=== PATIENT | female | born 1970 | race Caucasian/White ===

== ENCOUNTER 2018-10-25 13:26 | Emergency (ER) | payer BC ==
[2018-10-25 13:44] VITALS: BP 128/88; O2SAT 100
[2018-10-25] MEDS ORDERED: XYLOCAINE 2%/Epi 1:200000 20ML VIAL MPF SUBDERMAL STA (14:08)
[2018-10-25] MEDS ORDERED: Xylocaine 2%-Epi 1:100,000 MDV IJ ONE ×2 (14:16→14:32)
[2018-10-25] MEDS ORDERED: Adacel Vial IM ONE ×2 (14:32→14:36)
--- NOTE | 2018-10-25 14:38 | ERPHSYRPT ---
- History of Present Illness Source: patient, family Exam Limitations: no limitations Patient Subjective Stated Complaint: cut on the tiop of her head by a chainsaw. did not see her and skimmed the top of her head. lac x 2 Triage Nursing Assessment: alert and oriented in no distress. noted 2 small lac to the top of her head. bleeding controlled. denies any other injuries,. Physician History: Pt is a pleasant 48y/o that was working with her in the yard, and he was cutting branches with a chain saw. The pt tried to pick some branches off the ground, and the huisband did not see her, and skimmed the top of her head with the saw. There are two lacerations present on top part of her head. Pt denies N/V. No dizziness or syncope. No SOB or cough. She has tenderness around the lacerations. Timing/Duration: today Quality: painful Severity: moderate Location: scalp Possible Causes: other (chain saw lacerations) Associated Symptoms: headache Allergies/Adverse Reactions: No Known Drug Allergies Allergy (Unverified 10/25/18 14:12) Hx Tetanus, Diphtheria Vaccination/Date Given: No Hx Influenza Vaccination/Date Given: No Hx Pneumococcal Vaccination/Date Given: No Immunizations Up to Date: (unknown) - Review of Systems Constitutional: No Fever, No Chills Eyes: No Symptoms Ears, Nose, & Throat: No Symptoms Respiratory: No Cough, No Dyspnea Cardiac: No Chest Pain, No Edema, No Syncope Abdominal/Gastrointestinal: No Abdominal Pain, No Nausea, No Vomiting, No Diarrhea Musculoskeletal: No Back Pain, No Neck Pain Skin: Other (two lacerations on top of pt's head.) Neurological: No Dizziness, No Focal Weakness, No Sensory Changes Psychological: No Symptoms - Past Medical History Pertinent Past Medical History: Yes Respiratory History: Asthma - Past Surgical History Past Surgical History: Yes Female Surgical History: Section, Tubal Ligation - Social History Smoking Status: Never smoker Exposure to second hand smoke: No Drug Use: none Patient Lives Alone: No - Female History Hx Now: No - Nursing Vital Signs Nursing Vital Signs: Initial Vital Signs Temperature 98.3 F 10/25/18 13:38 Pulse Rate 75 10/25/18 13:38 Respiratory Rate 16 10/25/18 13:38 Blood Pressure 128/88 10/25/18 13:38 O2 Sat by Pulse Oximetry 100 01/01/19 13:38 Pain Scale Pain Intensity 4 - Physical Exam General Appearance: no apparent distress, alert Eye Exam: PERRL/EOMI, eyes nml inspection Ears, Nose, Throat Exam: normal ENT inspection, pharynx normal, moist mucous membranes Neck Exam: normal inspection, non-tender, supple, full range of motion Respiratory Exam: normal breath sounds, lungs clear, No respiratory distress Cardiovascular Exam: regular rate/rhythm, normal heart sounds Back Exam: normal inspection, normal range of motion, No CVA tenderness, No vertebral tenderness Extremity Exam: normal inspection, normal range of motion Neurologic Exam: alert, oriented x 3, cooperative, normal mood/affect, sensation nml, No motor deficits Skin Exam: laceration (x2, on top of pt's head, 4cm and 3 cm.) SpO2: 100 Oxygen Delivery: Room Air Procedures - Laceration/Wound Repair Head Wound Location: head Wound Length (cm): 4 (4cm and 3 cm) Wound's Depth, Shape: superficial Wound Explored: contaminated Irrigated: Yes Hibiclens Prep: Yes Anesthesia: local, 1% lidocaine w/ Epi Volume Anesthetic (ccs): 5 Wound Debrided: minimal Wound Repaired With: [place] (8 anurag. $ in each laceration) Layer Closure?: Yes Ordered Tests: Medication Summary Discontinued Medications Generic Name Dose Route Start Last Admin Trade Name Amla PRN Reason Stop Dose Admin Diphtheria/Tetanus/Acell Pertussis 0.5 ml 10/25/18 14:32 Adacel Vial IM 10/25/18 14:33 .ONCE ONE Lidocaine/Epinephrine 10 ml 10/25/18 14:08 10/25/18 14:31 Xylocaine 2%/Epi [id number] 20ml Vial Mpf SUBDERMAL 10/25/18 14:09 Not Given ONCE STA Lidocaine/Epinephrine Confirm 10/25/18 14:16 Xylocaine 2%-Epi 1:100,000 Mdv Administered 10/25/18 14:17 Dose 1 ml IJ .STK-MED ONE - Progress Progress: improved Will see patient in: office Counseled pt/family regarding: need for follow-up (Pt should f/u with PCP in 10 days for removal of anurag. Keep area clean and dry for 48-72 hrs) - Departure Time of Disposition: 14:40 Departure Disposition: Home Clinical Impression: Laceration Condition: Stable Critical Care Time: No Referrals: MOHSEN GONSALVES [Primary Care Provider] - Instructions: Laceration Repair With [place] (DC) Additional Instructions: Take Keflex till done. F/u with PCp in 7-10 days to remove anurag. Prescriptions: Cephalexin Mh 500 mg [Keflex 500 mg] 500 mg PO Q6H 7 Days #28 capsule
[2018-10-25 14:53] VITALS: PULSE 76
== END 2018-10-25 14:52 | disposition home or self-care (01) ==
LOC: ED 13:26
DX: S01.01XA Laceration without foreign body of scalp, initial encounter (principal); W45.8XXA Other foreign body or object entering through skin, initial encounter; W29.3XXA Contact with powered garden and outdoor hand tools and machinery, initial encounter; Y93.H2 Activity, gardening and landscaping; Y92.007 Garden or yard of unspecified non-institutional (private) residence as the place of occurrence of the external cause
CPT/HCPCS: 90471; 90715; 96372; 99284

== ENCOUNTER 2020-09-05 12:55 | Emergency (ER) | payer BC ==
[2020-09-05] MEDS ORDERED: Adacel Vial IM ONE ×2 (13:12→13:15)
--- NOTE | 2020-09-05 13:26 | ERPHSYRPT ---
- History of Present Illness Time Seen by Provider: 09/05/20 13:10 Source: patient Exam Limitations: no limitations Patient Subjective Stated Complaint: Pt states "I was splitting wood and I got my finger smashed between the wood and the metal cylinder." Triage Nursing Assessment: Pt presented alert and oriented X 3, skin pwd Pt ambulates with an upright steady gait, able to speak in clear full sentences. Pt has swelling and bleeding noted to third digit right hand distal Physician History: Patient is a 50-year-old female presents to our ED with pain to her right distal ring finger. Patient was splitting wood when her finger got caught between the wound and the metal piston. Injury occurred just prior to arrival. Patient injured the distal aspect of her right ring finger at the medial aspect of her pad. Patient states the finger is currently numb. Patient declined pain medication. There is a small laceration observed at this location. No other injuries reported. Tetanus is not up-to-date. Vitals are within normal limits. Patient voices no other complaints or concerns at this time. Timing/Duration: today Severity: moderate Modifying Factors: Improves With: nothing Associated Symptoms: denies symptoms Allergies/Adverse Reactions: No Known Drug Allergies Allergy (Verified 09/05/20 13:05) Home Medications: Amoxicillin [Amoxil] 500 mg PO BID 09/05/20 [History] Hx Tetanus, Diphtheria Vaccination/Date Given: No Hx Influenza Vaccination/Date Given: No Hx Pneumococcal Vaccination/Date Given: No Immunizations Up to Date: Yes Travel Risk - International Travel Have you traveled outside of the country in past 3 weeks: Yes If Yes, where;: friend - Coronavirus Screening Are you exhibiting any of the following symptoms?: No Close contact with a COVID-19 positive Pt in past 14-21 Days: No - Review of Systems Constitutional: No Symptoms, No Fever, No Chills Eyes: No Symptoms Ears, Nose, & Throat: No Symptoms Respiratory: No Symptoms, No Cough, No Dyspnea Cardiac: No Symptoms, No Chest Pain, No Edema, No Syncope Abdominal/Gastrointestinal: No Symptoms, No Abdominal Pain, No Nausea, No Vomiting, No Diarrhea Genitourinary Symptoms: No Symptoms, No Dysuria Musculoskeletal: No Symptoms, Other (2 cm laceration to the medial aspect of the right ring finger pad. No active bleeding. Nail plate intact. No subungual hematoma. The digit and extremities neurovascular intact distally. Compartments are soft. Cap refill less than 2 seconds. All other joints of the involved extremity are asymp), No Back Pain, No Neck Pain Skin: No Rash Neurological: No Dizziness, No Focal Weakness, No Sensory Changes Psychological: No Symptoms Endocrine: No Symptoms All Other Systems: Reviewed and Negative - Past Medical History Pertinent Past Medical History: Yes Respiratory History: Asthma - Past Surgical History Past Surgical History: Yes Female Surgical History: Section, Tubal Ligation - Social History Smoking Status: Never smoker Exposure to second hand smoke: No Drug Use: none Patient Lives Alone: No - Female History Hx Now: No - Nursing Vital Signs Nursing Vital Signs: Initial Vital Signs Temperature 98.3 F 09/05/20 13:01 Pulse Rate 94 H 09/05/20 13:01 Respiratory Rate 20 09/05/20 13:01 Blood Pressure 133/93 09/05/20 13:01 O2 Sat by Pulse Oximetry 97 09/05/20 13:01 Pain Scale Pain Intensity 0 - Physical Exam General Appearance: no apparent distress, alert Eye Exam: PERRL/EOMI, eyes nml inspection Ears, Nose, Throat Exam: normal ENT inspection, TMs normal, pharynx normal, moist mucous membranes Neck Exam: normal inspection, non-tender, supple, full range of motion Respiratory Exam: normal breath sounds, lungs clear, No respiratory distress Cardiovascular Exam: regular rate/rhythm, normal heart sounds, normal peripheral pulses Gastrointestinal/Abdomen Exam: soft, normal bowel sounds, No tenderness, No mass Back Exam: normal inspection, normal range of motion, No CVA tenderness, No vertebral tenderness Extremity Exam: normal inspection, normal range of motion, pelvis stable, other Neurologic Exam: alert, oriented x 3, cooperative, normal mood/affect, nml cerebellar function, nml station & gait, sensation nml, No motor deficits Skin Exam: normal color, warm, dry, No rash Lymphatic Exam: No adenopathy SpO2 Interpretation: normal SpO2: 97 O2 Delivery: Room Air Procedures - Laceration/Wound Repair Right Medial Distal Finger Wound Location: Right Wound Length (cm): 2 Wound's Depth, Shape: superficial Wound Explored: clean Irrigated: Yes Hibiclens Prep: Yes Anesthesia: 1% Lidocaine Volume Anesthetic (ccs): 2 Wound Debrided: No debridement Wound Repaired With: sutures Suture Size/Type: 5-0, nylon Number of Sutures: 2 Layer Closure?: No Sterile Dressing Applied?: Yes Splint Applied?: Yes Type of Splint Applied: AlumaFoam Sling Applied?: Yes Progress: 09/05/20 14:14 Neurovascularly intact distally post procedure and splint application. - Course Nursing assessment & vital signs reviewed: Yes - Radiology Exams Hand X-ray Interpretation: Teleradiologist Report (Fourth digit soft tissue swelling/laceration. No other bony articular or soft tissue abnormalities.) Ordered Tests: Active Orders 24 hr Category Date Time Status HAND (MINIMUM 3 VIEWS) Stat Exams 09/05/20 13:13 Completed Medication Summary Discontinued Medications Generic Name Dose Route Start Last Admin Trade Name Freq PRN Reason Stop Dose Admin Diphtheria/Tetanus/Acell Pertussis 0.5 ml 09/05/20 13:12 09/05/20 13:18 Adacel Vial IM 09/05/20 13:13 0.5 ml .ONCE ONE Administration Diphtheria/Tetanus/Acell Pertussis Confirm 09/05/20 13:15 Adacel Vial Administered 09/05/20 13:16 Dose 0.5 ml IM .STK-MED ONE Lidocaine HCl 5 ml 09/05/20 13:31 Xylocaine 2% Hcl 20 Ml Mdv IJ 09/05/20 13:32 STAT ONE - Progress Progress: improved Progress Note: 09/05/20 14:14 Patient presents to our ED with contusion laceration to her right distal ring finger. X-ray negative for fracture. Tetanus updated. Wound cleaned and sutured with 2 simple interrupted sutures. Dressing applied. Splint applied. Instructions on the counter analgesics. Patient agrees to follow-up with primary care doctor within 48 hours for reevaluation. Sutures are to be removed in 7 days. Antibiotic prescription forwarded to patient's pharmacy. Kiran Counseled pt/family regarding: diagnosis, need for follow-up, rad results - Departure Departure Disposition: Home Clinical Impression: Laceration, Finger contusion Condition: Stable Critical Care Time: No Referrals: MOHSEN GONSALVES [Primary Care Provider] - Additional Instructions: Discharge/Care Plan WILMA HAWLEY was seen on 09/05/20 in the Emergency Room. The patient was counseled regarding Diagnosis,Lab results, Imaging studies, need for follow up and when to return to the Emergency Room. Prescriptions given: Discharge Note I have spoken with the patient and/or caregivers. I have explained the patient's condition, diagnosis and treatment plan based on the information available to me at this time. I have answered the patient's and/or caregiver's questions and addressed any concerns. The patient and/or caregivers have as good understanding of the patient's diagnosis, condition and treatment plan as can be expected at this point. The vital signs have been stable. The patient's condition is stable and appropriate for discharge from the emergency department. The patient will pursue further outpatient evaluation with the primary care physician or other designated or consulting physician as outlined in the discharge instructions. The patient and/or caregivers are agreeable to this plan of care and follow-up instructions have been explained in detail. The patient and/or caregivers have received these instruction. The patient/and or caregivers are aware that any significant change in condition or worsening of symptoms should prompt an immediate return to this or the closest emergency department or call 911. Prescriptions: Cephalexin Mh 500 mg [Keflex 500 mg] 500 mg PO TID 7 Days #21 capsule
[2020-09-05] MEDS ORDERED: XYLOCAINE 2% HCL 20 ML MDV IJ ONE (13:31)
--- NOTE | 2020-09-05 13:36 | XRAY ---
Indication: 4th digit crush injury. Comparison: None 3 view right hand demonstrates distal 4th finger soft tissue swelling/laceration. No other bony, articular, or soft tissue abnormalities.
[2020-09-05 14:14] VITALS: BP 136/90; PULSE 81
[2020-09-05 14:16] VITALS: O2SAT 97
== END 2020-09-05 14:28 | disposition home or self-care (01) ==
LOC: ED 12:55
DX: S61.412A Laceration without foreign body of left hand, initial encounter (principal); S60.041A Contusion of right ring finger without damage to nail, initial encounter; M79.641 Pain in right hand
CPT/HCPCS: 73130; 90471; 90715; 96372; 99284